=== PATIENT | male | born 1990 | race Caucasian/White ===

== ENCOUNTER 2021-10-11 04:12 | Emergency (ER) | payer BC, OTHER ==
[~2021-10-11] VITALS: Ht 180 cm; Wt 95.3 kg
[2021-10-11] MEDS ORDERED: FAMOTIDINE 20 MG (PEPCID) TABLET PO STA (04:23)
[2021-10-11] MEDS ORDERED: ANTACID SUSP 30 ML UDC (MYLANTA) PO ONE (04:30)
[2021-10-11] MEDS ORDERED: LIDOCAINE 2% VISCOUS 15 ML UDC PO ONE (04:30)
[2021-10-11] MEDS ORDERED: ASPIRIN 81 MG CHEW (CHILDREN'S ASA) PO ONE (04:30)
--- NOTE | 2021-10-11 04:30 | ED Chest Pain ---
General Chief Complaint: Psych/Social Disorder Stated Complaint: ANXIETY Source: patient, spouse Exam Limitations: no limitations (THEO MCKOY) History of Present Illness Date Seen by Provider: Oct 11, 2021 Time Seen by Provider: 04:12 Initial Comments Patient to the ER by EMS from home with chief complaint that he was awoken shortly before his called 911 with severe chest pain pointing to his epigastric region radiating over to his right upper quadrant abdomen. No nausea vomiting fevers chills cough or shortness of air. He was hyperventilating 40 breaths/min when EMS arrived. They coached his breathing down. They are about to give him some Benadryl for his anxiety but he seemed to improve. He remarks that his pain was 12 out of 10 initially sharp and stabbing. Is now about a 1 out of 10. EMS obtain some labs place an IV and transported him here. EKG was normal sinus rhythm without clinically relevant ST changes. Patient has no personal history of heart disease hypertension hyperlipidemia diabetes course smoking. He says he drank a sixpack of beer last night. He ate pizza last night. No history of abdominal surgeries or scopes. (THEO MCKOY) Allergies and Home Medications Allergies Coded Allergies: No Known Drug Allergies (Unverified , 10/11/21) Patient Home Medication List Home Medication List Reviewed: Yes (THEO MCKOY) Review of Systems Review of Systems Constitutional: No chills, No diaphoresis EENTM: No Blurred Vision, No Double Vision Respiratory: Denies Cough, Denies Shortness of Air Cardiovascular: See HPI, Chest Pain; Denies Irregular Heart Rate, Denies Lightheadedness Gastrointestinal: See HPI; Denies Abdominal Pain, Denies Constipated, Denies Diarrhea, Denies Nausea Genitourinary: Denies Burning, Denies Discharge Musculoskeletal: No back pain, No joint pain Skin: No pruritus, No rash Psychiatric/Neurological: Denies Headache, Denies Numbness, Denies Paresthesia (THEO MCKOY) All Other Systems Reviewed Negative Unless Noted: Yes (THEO MCKOY) Past Cconlpw-Kqjhbc-Tayzjc Hx Patient Social History Tobacco Use?: No Smokeless Tobacco Frequency: Former User Substance use?: No Alcohol Use?: Yes Alcohol type: Beer Alcohol Frequency: Daily (THEO MCKOY) Immunizations Up To Date First/Initial COVID19 Vaccinat: STATES ONLY ONE DOSE IN MAY (THEO MCKOY) Physical Exam Vital Signs Vital Signs - First Documented 10/11/21 04:14 Temp 36.9 Pulse 90 Resp 18 B/P (MAP) 154/104 (121) Pulse Ox 99 O2 Delivery Room Air (CORBY LIAM MD) Vital Signs Capillary Refill : (THEO MCKOY) Height, Weight, BMI Height: '" Weight: lbs. oz. kg; BMI Method: General Appearance: WD/WN, Anxious, Mild Distress HEENT: PERRL/EOMI, Pharynx Normal, Moist Mucous Membranes Neck: Full Range of Motion, Normal Inspection Respiratory: Chest Non Tender, Lungs Clear, Normal Breath Sounds, No Accessory Muscle Use, No Respiratory Distress Cardiovascular: Regular Rate, Rhythm, No Edema, Normal Peripheral Pulses Gastrointestinal: Normal Bowel Sounds, No Organomegaly, Tenderness (Marginal epigastric tenderness without Sandoval sign mesenteric signs Rovsing sign.) Extremity: Normal Capillary Refill, Normal Inspection, No Pedal Edema Neurologic/Psychiatric: Alert, Oriented x3, Other (Anxious affect) Skin: Normal Color, Warm/Dry (THEO MCKOY) Progress/Results/Core Measures Results/Orders Lab Results Laboratory Tests Test 10/11/21 04:00 10/11/21 04:15 10/11/21 04:36 10/11/21 07:00 Range/Units Serum Alcohol 159 H <10 MG/DL White Blood Count 7.1 4.3-11.0 10^3/uL Red Blood Count 5.71 H 4.30-5.52 10^6/uL Hemoglobin 16.5 13.3-17.7 g/dL Hematocrit 48 40-54 % Mean Corpuscular Volume 84 80-99 fL Mean Corpuscular Hemoglobin 29 25-34 pg Mean Corpuscular Hemoglobin Concent 35 32-36 g/dL Red Cell Distribution Width 12.6 10.0-14.5 % Platelet Count 287 130-400 10^3/uL Mean Platelet Volume 9.3 9.0-12.2 fL Immature Granulocyte % (Auto) 0 % Neutrophils (%) (Auto) 49 42-75 % Lymphocytes (%) (Auto) 41 12-44 % Monocytes (%) (Auto) 9 0-12 % Eosinophils (%) (Auto) 1 0-10 % Basophils (%) (Auto) 1 0-10 % Neutrophils # (Auto) 3.5 1.8-7.8 10^3/uL Lymphocytes # (Auto) 2.9 1.0-4.0 10^3/uL Monocytes # (Auto) 0.6 0.0-1.0 10^3/uL Eosinophils # (Auto) 0.1 0.0-0.3 10^3/uL Basophils # (Auto) 0.0 0.0-0.1 10^3/uL Immature Granulocyte # (Auto) 0.0 0.0-0.1 10^3/uL Prothrombin Time 11.9 L 12.2-14.7 SEC INR Comment 0.8 0.8-1.4 Activated Partial Thromboplast Time 29 24-35 SEC D-Dimer 0.14 0.00-0.49 UG/ML Blood Gas Puncture Site LEFT RADIAL Blood Gas Patient Temperature 36.7 Arterial Blood pH 7.43 7.37-7.43 Arterial Blood Partial Pressure CO2 32 L 35-45 MMHG Arterial Blood Partial Pressure O2 119 H 79-93 MMHG Arterial Blood HCO3 21 L 23-27 MMOL/L Arterial Blood Total CO2 21.9 21.0-31.0 MMOL/L Arterial Blood Oxygen Saturation 99 94-100 % Arterial Blood Base Excess -2.7 L -2.5-2.5 MMOL/L Jer Test POSITIVE Blood Gas Ventilator Setting NO Blood Gas Inspired Oxygen RA Sodium Level 142 135-145 MMOL/L Potassium Level 4.7 3.6-5.0 MMOL/L Chloride Level 106 98-107 MMOL/L Carbon Dioxide Level 18 L 21-32 MMOL/L Anion Gap 18 H 5-14 MMOL/L Blood Urea Nitrogen 12 7-18 MG/DL Creatinine 0.77 0.60-1.30 MG/DL Estimat Glomerular Filtration Rate 116 BUN/Creatinine Ratio 16 Glucose Level 100 70-105 MG/DL Calcium Level 9.2 8.5-10.1 MG/DL Corrected Calcium 8.5-10.1 MG/DL Magnesium Level 2.2 1.6-2.4 MG/DL Total Bilirubin 0.3 0.1-1.0 MG/DL Aspartate Amino Transf (AST/SGOT) 37 H 5-34 U/L Alanine Aminotransferase (ALT/SGPT) 34 0-55 U/L Alkaline Phosphatase 34 L 40-136 U/L Myoglobin 47.9 10.0-92.0 NG/ML Troponin I < 0.028 < 0.028 <0.028 NG/ML Total Protein 7.4 6.4-8.2 GM/DL Albumin 4.6 H 3.2-4.5 GM/DL Lipase 30 8-78 U/L Urine Color YELLOW Urine Clarity CLEAR Urine pH 7.0 5-9 Urine Specific Luke 1.015 L 1.016-1.022 Urine Protein NEGATIVE NEGATIVE Urine Glucose (UA) NEGATIVE NEGATIVE Urine Ketones TRACE H NEGATIVE Urine Nitrite NEGATIVE NEGATIVE Urine Bilirubin NEGATIVE NEGATIVE Urine Urobilinogen 0.2 < = 1.0 MG/DL Urine Leukocyte Esterase NEGATIVE NEGATIVE Urine RBC (Auto) NEGATIVE NEGATIVE Urine RBC NONE /HPF Urine WBC NONE /HPF Urine Squamous Epithelial Cells NONE /HPF Urine Crystals NONE /LPF Urine Bacteria NEGATIVE /HPF Urine Casts NONE /LPF Urine Mucus NEGATIVE /LPF Urine Culture Indicated NO Urine Opiates Screen NEGATIVE NEGATIVE Urine Oxycodone Screen NEGATIVE NEGATIVE Urine Methadone Screen NEGATIVE NEGATIVE Urine Propoxyphene Screen NEGATIVE NEGATIVE Urine Barbiturates Screen NEGATIVE NEGATIVE Ur Tricyclic Antidepressants Screen NEGATIVE NEGATIVE Urine Phencyclidine Screen NEGATIVE NEGATIVE Urine Amphetamines Screen NEGATIVE NEGATIVE Urine Methamphetamines Screen NEGATIVE NEGATIVE Urine Benzodiazepines Screen NEGATIVE NEGATIVE Urine Cocaine Screen NEGATIVE NEGATIVE Urine Cannabinoids Screen NEGATIVE NEGATIVE (CORBY LIMA MD) My Orders Orders - CORBY LIMA MD Troponin I (10/11/21 07:41) (CORBY LIMA MD) Medications Given in ED Current Medications Medications Dose Ordered Sig/Cherelle Route Start Time Stop Time Status Last Admin Dose Admin Al Hydrox/Mg Hydrox/Simethicone 30 ml ONCE ONCE PO 10/11/21 04:30 10/11/21 04:31 DC 10/11/21 04:45 30 ML Aspirin 324 mg ONCE ONCE PO 10/11/21 04:30 10/11/21 04:31 DC 10/11/21 04:45 324 MG Lidocaine HCl 15 ml ONCE ONCE PO 10/11/21 04:30 10/11/21 04:31 DC 10/11/21 04:45 15 ML (CORBY LIMA MD) Vital Signs/I&O 10/11/21 04:14 Temp 36.9 Pulse 90 Resp 18 B/P (MAP) 154/104 (121) Pulse Ox 99 O2 Delivery Room Air (CORBY LIMA MD) Progress Progress Note #1: Time: 04:33 Progress Note Normal sinus rhythm on EKG. we will give him a dose of aspirin and a GI cocktail. He seems quite anxious. We will get ABG to look for respiratory alkalosis. He is not in tremendous amount of pain right now so we will not give him any pain medicines beyond a GI cocktail for the moment. Reviewed the EKG on the scene and it looks the same as the one from the ER. Also give consideration for pancreatitis, gastritis, gallbladder, may be less likely myocarditis, CAD, bronchospasm or PE. He is not tachycardic, having hemoptysis or history of recent periods of immobilization or history of DVT/PE. Wells score for pulmonary embolism: 0.0 points; Low risk group: 1.3% chance of PE in an ED population. PERC 0 criteria. No need for further workup, as <2% chance of PE. If no criteria are positive and clinicians pre-test probability is <15%, PERC Rule criteria are satisfied. He has had a couple episodes with a good Plath a where his oxygen saturations will dip down into the upper 80s. Pulse oximeter is on the office and of blood pressure cuff and demonstrates good waveform. ABG has been obtained. Progress Note #2: Time: 04:48 Progress Note Patient had a couple episodes of pulse oximetry going down to 82 to 86% and then transiently returning within 15 seconds. He denies feeling short of breath. He states he is not holding his breath. He does not have bluish cool fingertips like Raynaud's. His ABG demonstrates he is getting plenty of arterial oxygenation and seems to demonstrate he has had recently approached respiratory alkalosis which makes more sense for anxiety, pain or combination thereof. GI cocktail and aspirin given. 0600: Handoff patient to Dr. Lima. Patient symptoms are completely gone after the GI cocktail. It would be carlos for him to follow-up with Dr. Young for possible EGD or gallbladder work-up. We discussed these findings with him and that we would do a 3-hour delta troponin at 7:00 and he is okay with this plan. (THEO MCKOY) Progress Note : Time: 08:08 Progress Note Second troponin remains negative, will discharge the patient with recommendations to start taking an [id number] acid laborer hide house. Patient encouraged to abstain from alcohol in the short-term, take the acid laborer hide house for 2 weeks. Follow-up with primary care. Return precautions given. All questions are sought and answered. Patient is stable for discharge. (CORBY LIMA MD) Initial ECG Impression Date: Oct 11, 2021 Initial ECG Impression Time: 04:00 Initial ECG Rate: 89 Initial ECG Rhythm: Normal Sinus Initial ECG Intervals: Normal Initial ECG Impression: Normal, Nonspecific Changes Initial ECG Comparisson: No Previous ECG Available Comment Borderline 0.[address] elevation in the V3 through V6 leads. Nonspecific finding of uncertain clinical significance. Normal sinus rhythm. EKG : EKG Time: 04:18 Rate: 88 Rhythm: Normal Sinus Intervals: Normal ECG Comparisson: Unchanged ECG Impression: Normal, Nonspecific Changes Comment Normal sinus rhythm with one half block ST elevation in leads V3 through V6 of uncertain clinical significance. (THEO MCKOY) Diagnostic Imaging Diagonstic Imaging: Xray Plain Films/CT/US/NM/MRI: chest Comments [facility], [place] NAME: [facility] REC#: [id number] PT STATUS: REG ER : 1990 PHYSICIAN: THEO MCKOY MD ADMIT DATE: 10/11/21/ER Draft Date of Exam:10/11/21 CHEST 1 VIEW, AP/PA ONLY Indication: Chest and epigastric pain. Comparison: None. Discussion: Single portable upright view of the chest was obtained. Normal heart size. No consolidation, pleural fluid, or pneumothorax. Elevated right hemidiaphragm. No osseous abnormality. Impression: 1. No acute cardiopulmonary process. Dictated on workstation # [id number] Dict: 10/11/21 0448 Trans: 10/11/21 0453 JARED [id number] Interpreted by: IVONNE BRADSHAW MD Electronically signed by: Reviewed: Reviewed by Me (THEO MCKOY) Transfer of Care Time: 06:00 Care transferred to: Dr. Lima (THEO MCKOY) Departure Impression Primary Impression: Chest pain Qualified Codes: R07.9 - Chest pain, unspecified Additional Impression: Gastritis Qualified Codes: K29.70 - Gastritis, unspecified, without bleeding Disposition: 01 HOME, SELF-CARE Condition: Stable Departure-Patient Inst. Decision time for Depature: 08:06 (CORBY LIMA MD) Referrals: [facility] [place] Patient Instructions: Gastritis (DC) Add. Discharge Instructions: Start taking an over the counter acid laborer hide house daily, such as pepcid or prilosec, for the next 2 weeks. Follow up with a primary care doctor. Return to the Emergency Department for any new, concerning or emergent complaints. All discharge instructions reviewed with patient and/or family. Voiced understanding. THEO MCKOY Oct 11, 2021 04:30 CORBY LIMA MD Oct 11, 2021 08:08
[2021-10-11 04:39] LABS: BASOPHILS % (AUTO) 1 % (0-10); EOSINOPHILS # (AUTO) 0.1 10^3/uL (0.0-0.3); EOSINOPHILS % (AUTO) 1 % (0-10); HEMATOCRIT 48 % (40-54); HEMOGLOBIN 16.5 g/dL (13.3-17.7); LYMPHOCYTES # (AUTO) 2.9 10^3/uL (1.0-4.0); LYMPHOCYTES % (AUTO) 41 % (12-44); MEAN CORPUSCULAR HEMOGLOBIN 29 pg (25-34); MEAN CORPUSCULAR HGB CONC 35 g/dL (32-36); MEAN CORPUSCULAR VOLUME 84 fL (80-99); MEAN PLATELET VOLUME 9.3 fL (9.0-12.2); MONOCYTES # (AUTO) 0.6 10^3/uL (0.0-1.0); MONOCYTES % (AUTO) 9 % (0-12); NEUTROPHILS # (AUTO) 3.5 10^3/uL (1.8-7.8); NEUTROPHILS % (AUTO) 49 % (42-75); PLATELET COUNT 287 10^3/uL (130-400); WHITE BLOOD COUNT 7.1 10^3/uL (4.3-11.0)
[2021-10-11 04:40] LABS: ABG BASE EXCESS -2.7 MMOL/L (-2.5-2.5); ABG OXYGEN SATURATION 99 % (94-100); ABG PCO2 32 MMHG (35-45); ABG PH 7.43 (7.37-7.43); ABG PO2 119 MMHG (79-93); ABG TCO2 21.9 MMOL/L (21.0-31.0)
[2021-10-11 04:41] LABS: ALLENS TEST POSITIVE; INSPIRED O2 RA; PATIENT TEMP 36.7; VENTILATOR NO
[2021-10-11 04:44] LABS: ALBUMIN 4.6 GM/DL (3.2-4.5)
[2021-10-11 04:45] LABS: CHLORIDE 106 MMOL/L (98-107); POTASSIUM 4.7 MMOL/L (3.6-5.0); SODIUM 142 MMOL/L (135-145)
[2021-10-11 04:46] LABS: CALCIUM 9.2 MG/DL (8.5-10.1)
[2021-10-11 04:47] LABS: GLUCOSE 100 MG/DL (70-105); TOTAL PROTEIN 7.4 GM/DL (6.4-8.2)
[2021-10-11 04:48] LABS: CARBON DIOXIDE 18 MMOL/L (21-32)
[2021-10-11 04:49] LABS: BILIRUBIN,TOTAL 0.3 MG/DL (0.1-1.0)
[2021-10-11 04:51] LABS: ALKALINE PHOSPHATASE 34 U/L (40-136); CREATININE SERUM 0.77 MG/DL (0.60-1.30); GFR ESTIMATED 116
[2021-10-11 04:52] LABS: BUN/CREATININE RATIO 16
--- NOTE | 2021-10-11 04:53 | Diagnostic Imaging Report ---
Indication: Chest and epigastric pain. Comparison: None. Discussion: Single portable upright view of the chest was obtained. Normal heart size. No consolidation, pleural fluid, or pneumothorax. Elevated right hemidiaphragm. No osseous abnormality. Impression: 1. No acute cardiopulmonary process. Dictated by: Dictated on workstation # [id number]
[2021-10-11 04:54] LABS: ALANINE AMINOTRANSFERASE 34 U/L (0-55); MAGNESIUM 2.2 MG/DL (1.6-2.4)
[2021-10-11 04:55] LABS: LIPASE 30 U/L (8-78)
[2021-10-11 05:02] LABS: BILIRUBIN,URINE NEGATIVE (NEGATIVE); CLARITY,URINE CLEAR; COLOR,URINE YELLOW; GLUCOSE, URINE (UA) NEGATIVE (NEGATIVE); KETONES,URINE TRACE (NEGATIVE); LEUKOCYTE ESTERASE ,URINE NEGATIVE (NEGATIVE); NITRITE,URINE NEGATIVE (NEGATIVE); PROTEIN,URINE NEGATIVE (NEGATIVE)
[2021-10-11 05:08] LABS: FIBRIN DEGRADATION PRODUCTS 0.14 UG/ML (0.00-0.49); INR 0.8 (0.8-1.4); PROTHROMBIN TIME PATIENT 11.9 SEC (12.2-14.7)
[2021-10-11 05:19] LABS: AMPHETAMINE SCREEN, URINE NEGATIVE (NEGATIVE); BARBITURATE SCREEN URINE NEGATIVE (NEGATIVE); BENZODIAZEPINES SCREEN URINE NEGATIVE (NEGATIVE); CANNABINOID SCREEN, URINE NEGATIVE (NEGATIVE); COCAINE SCREEN URINE NEGATIVE (NEGATIVE); METHADONE STAT NEGATIVE (NEGATIVE); METHAMPHETAMINE SCREEN URINE S NEGATIVE (NEGATIVE); OPIATE SCREEN URINE NEGATIVE (NEGATIVE); OXYCODONE STAT NEGATIVE (NEGATIVE); PROPOXYPHENE STAT NEGATIVE (NEGATIVE); TRICYCLIC ANTIDEPRESSANTS SCRE NEGATIVE (NEGATIVE)
[2021-10-11 05:21] LABS: BACTERIA,URINE NEGATIVE /HPF
[2021-10-11 08:25] VITALS: BP 135/89
== END 2021-10-11 08:25 | disposition home or self-care (01) ==
LOC: EDUNIT# 04:12 → ER 04:16
DX: R07.9 Chest pain, unspecified (principal); K29.70 Gastritis, unspecified, without bleeding; Z87.891 Personal history of nicotine dependence
CPT/HCPCS: 71045; 80053; 80306; 81000; 82805; 83690; 83735; 83874; 84484; 85025; 85379; 85610; 85730; 93005; 93041; 99285; G0480; 36415; 80320